=== PATIENT | male | born 1985 | race Caucasian/White ===

== ENCOUNTER 2020-02-04 09:51 | Emergency (ER) | payer MEDICAID ==
[~2020-02-04] VITALS: Ht 172.7 cm; Wt 68.2 kg
[2020-02-04 10:12] VITALS: BP_SYST 117
[2020-02-04] MEDS ORDERED: CEPH250T PO (11:27)
== END 2020-02-04 12:00 | disposition home or self-care (01) ==
LOC: ER 09:52
DX: S09.8XXA Other specified injuries of head, initial encounter (principal); S01.312A Laceration without foreign body of left ear, initial encounter; Z79.2 Long term (current) use of antibiotics; X58.XXXA Exposure to other specified factors, initial encounter; Y93.89 Activity, other specified; Y92.89 Other specified places as the place of occurrence of the external cause; Y99.8 Other external cause status
CPT/HCPCS: 99283